=== PATIENT | female | born 1960 | race Caucasian/White ===

== ENCOUNTER 2018-02-15 12:04 | Outpatient (CLI) | payer OTHER, SELFPAY ==
[2018-02-15 13:16] LABS: Hemoglobin 12.4 g/dL (12.0-16.0); Mean Corpuscular HGB CONC 33.5 g/dL (32.0-36.0); Mean Corpuscular Hemoglobin 30.1 pg (27.0-31.0); Mean Platelet Volume 6.7 fL (7.4-10.4); Platelet Count 309 thou/uL (130-400); RBC Distribution Width 12.2 % (11.5-14.5); Red Blood Cell (RBC) Count 4.12 mill/uL (4.20-5.40); White Blood Cell (WBC) Count 5.1 thou/uL (4.8-10.8)
[2018-02-15 13:44] LABS: Anion Gap 11 mmol/L (10-20); BUN (Urea Nitrogen) 10 mg/dL (9.8-20.1); Calc. Creatinine Clearance 0 mL/min (70-130); Calcium 8.8 mg/dL (7.8-10.44); Carbon Dioxide 25 mmol/L (22-29); Chloride 109 mmol/L (98-107); Estimated GFR-MDRD 71; Glucose 92 mg/dL (70-105); Potassium 3.7 mmol/L (3.5-5.1); Sodium 141 mmol/L (136-145)
== END 2018-02-15 12:05 | disposition home or self-care (01) ==
LOC: LABBT 12:04
PROVIDERS: ATTEND Urology
DX: Z01.812 Encounter for preprocedural laboratory examination (principal); N13.2 Hydronephrosis with renal and ureteral calculous obstruction
CPT/HCPCS: 80048; 85027

== ENCOUNTER 2018-02-19 09:50 | Day surgery (SDC) | payer OTHER ==
[2018-02-15 12:31] VITALS: BMI 24.6
[2018-02-19] MEDS ORDERED: cefTRIAXone\\ROCEPHIN 1 GM, Syringe 0.4 ML in Sterile Water 9.6 ML SLOW IVP SCH (10:30)
--- NOTE | 2018-02-19 11:21 | RAD ---
RADIOGRAPH ABDOMEN ONE VIEW: Date: 02-19-18 History: 57-year-old female with nephrolithiasis. Pre procedural planning study for shockwave lithotripsy. Comparison: None. FINDINGS: There is a right ureteral stent. 5 or 6 mm calculus in proximal right ureter at L3-4 level. 8-9 mm ca lculus at the right renal midpole. Two smaller calculi slightly superior to it. Calcification in righ t hemipelvis is probably a phlebolith. Normal bowel gas pattern. IMPRESSION: 1. Right ureteral stent. 2. Evidence for right nephrolithiasis, consisting of a tight cluster of a few calculi in the right ki dney. 3. Calculus in right proximal ureter or ureteropelvic junction. POS: RADHA
[2018-02-19] MEDS ORDERED: Famotidine/PF 20 mg/2ml Vial ONE (11:58)
[2018-02-19] MEDS ORDERED: Fentanyl 100 MCG/2 ML VIAL ONE (11:58)
[2018-02-19] MEDS ORDERED: Albuterol Sulfate HFA (OR ONLY) ONE (12:10)
[2018-02-19] MEDS ORDERED: Furosemide 20 MG/2 ML VIAL ONE (13:18)
--- NOTE | 2018-02-19 13:33 | OP ---
DATE OF PROCEDURE: 02/19/2018 PREOPERATIVE DIAGNOSIS: Right renal stones. POSTOPERATIVE DIAGNOSES: Right renal stones as well as renal stones popping into the proximal ureter . SURGEON: Lydia Mckinley M.D. ANESTHESIA: General with laryngeal mask airway. FINDINGS: 1.3 cm UPJ stone was in the kidney and a 5-6 mm stone was at the UPJ. On the morning KUB; however, intraoperative it was noted that both stones were in the kidney and there was not a uretera l stone noted. COMPLICATIONS: No complications. ESTIMATED BLOOD LOSS: No blood loss. DRAINS REMAINING: No drains remaining. She already had an indwelling double-J. SPECIMENS: No specimens. INDICATIONS: The patient is a 57-year-old female who was admitted urgently with an obstructing 1.3 c m stone and underwent urgent stent. At that time it had appeared that the stent placement had pushed the UPJ stone into the kidney, so she was set up for definitive shockwave therapy. The patient was brought into the room by Anesthesia, laid on the table in the supine position. After receiving general anesthetic, she was positioned so that the lithotripter could identify the stones in multiple planes. Originally the smaller stone was at the UPJ by the KUB, but intraoperative fluor oscopy revealed that both stones were in the kidney. So, attention was turned to the smaller stone w here a total of 600 shocks were delivered originally with a relatively good fragmentation. Then, att ention was turned to the large stone with a maximum power of 4/6 and a max rate of 70 per minute. A total between the 2 stones at 2500 shocks were delivered. Good fragmentation was noted. The patient tolerated the procedure well and then was awakened and transferred to PACU in stable condition.
[2018-02-19] MEDS ORDERED: HYDROcodone/Acetaminophen 5/325 mg Tablet ONE (14:40)
[2018-02-19] MEDS ORDERED: ePHEDrine/0.9% NaCl/PF SYRINGE 50 mg/10 ml ONE (16:24)
[2018-02-19] MEDS ORDERED: Lidocaine 1% PF 5 ML VIAL ONE (16:24)
[2018-02-19] MEDS ORDERED: PHENYLEPHRINE-NS 100 MCG/ML 10 ML SYRINGE ONE (16:24)
[2018-02-19] MEDS ORDERED: Dexamethasone 20 MG/5 ML VIAL ONE (16:24)
[2018-02-19] MEDS ORDERED: PROPOFOL 200 MG/20 ML VIAL ONE (16:24)
== END 2018-02-19 15:28 | disposition home or self-care (01) ==
LOC: SDC 09:50
PROVIDERS: ATTEND Urology
PROC: 0TF3XZZ Fragmentation in Right Kidney Pelvis, External Approach (ICD-10-PCS; principal; 2018-02-19)
DX: N20.0 Calculus of kidney (principal); K50.90 Crohn's disease, unspecified, without complications; F17.210 Nicotine dependence, cigarettes, uncomplicated; Z87.442 Personal history of urinary calculi; Z79.899 Other long term (current) drug therapy; Z88.5 Allergy status to narcotic agent; Z88.8 Allergy status to other drugs, medicaments and biological substances; Z91.048 Other nonmedicinal substance allergy status
CPT/HCPCS: 74018; A4216; J0131; J0696; J1100; J1940; J2001; J2704; J3010; S0028

== ENCOUNTER 2018-03-28 09:13 | Outpatient (CLI) | payer OTHER ==
--- NOTE | 2018-03-28 11:36 | RAD ---
KUB: HISTORY: Renal calculus. COMPARISON: 02/19/18 study. FINDINGS: The bowel gas pattern is nonobstructed. Stool obscures both renal outlines, particularly on the righ t. A proximal right ureteral calculus seen on the previous examination is not definitely visualized on this study. The stent has been removed. Calcifications in the pelvis appear to represent phlebol iths. IMPRESSION: No definitive renal or ureteral calculi. The right renal outline is obscured by stool. POS: RADHA
== END 2018-03-28 09:14 | disposition home or self-care (01) ==
LOC: RAD 09:13
PROVIDERS: ATTEND Urology
DX: N20.1 Calculus of ureter (principal)
CPT/HCPCS: 74018

== ENCOUNTER 2025-10-08 10:58 | Emergency (ER) | payer BC, MEDICARE, OTHER ==
[2025-10-08] MEDS ORDERED: Ondansetron PF 4 MG/2 ML Vial ONE (13:42)
[2025-10-08 13:43] LABS: #Basophils 0.05 10x3/uL (0.0-0.2); #Eosinophils Less than 0.03 10x3/uL (0.0-0.7); #Monocytes 0.72 10x3/uL (0.11-0.59); #Neutrophils 11.67 10x3/uL (1.40-6.50); %Basophils 0.4 % (0.0-1.0); %Eosinophils 0.1 % (0.0-10.0); %Lymphocytes 11.3 % (21.0-51.0); %Monocytes 5.1 % (0.0-10.0); %Neutrophils 82.8 % (42.0-75.0); Hematocrit 48.3 % (36.0-47.0); Hemoglobin 15.5 g/dL (12.0-16.0); Mean Corpuscular Hemoglobin 28.2 pg (27.0-31.0); Mean Corpuscular Volume 87.8 fL (78.0-98.0); Platelet Count 304 10x3/uL (130-400); Red Blood Cell (RBC) Count 5.50 mill/uL (4.20-5.40); White Blood Cell (WBC) Count 14.10 10x3/uL (4.8-10.8)
[2025-10-08 14:34] LABS: ALT (SGPT) 25 U/L (Less than 34); AST (SGOT) 30 U/L (11-34); Albumin 4.4 g/dL (3.1-4.5); Alkaline Phosphatase 113 U/L (40-110); Anion Gap 11 mmol/L (10-20); BUN (Urea Nitrogen) 21 mg/dL (9.8-20.1); Bilirubin, Total 1.9 mg/dL (0.3-1.2); Calc. Creatinine Clearance 0 mL/min (70-130); Calcium 9.9 mg/dL (7.8-10.44); Carbon Dioxide 23 mmol/L (23-31); Chloride 108 mmol/L (98-107); Globulin 4.3 g/dL (2.4-3.5); Glucose 113 mg/dL (80-115); Lipase 48 U/L (8-78); Potassium 4.3 mmol/L (3.5-5.1); Sodium 138 mmol/L (136-145)
[2025-10-08 14:50] LABS: Bacteria/HPF None Seen HPF (None Seen); CAUTI Indications for Culture Dysuria,urgency,freq; Glucose, Urine (Dipstick) Normal (Negative); Leukocyte Negative Leu/uL (Negative); Protein, Urine (Dipstick) 30 mg/dL (Neg-Trace); RBC/HPF 0-3 HPF (0-3); Specific Gravity, Urine 1.027 (1.002-1.036); WBC/HPF 0-3 HPF (0-3)
[2025-10-08 15:03] LABS: Urine Culture Reflex No No
== END 2025-10-08 16:45 | disposition home or self-care (01) ==
LOC: ERS 10:58
DX: K50.90 Crohn's disease, unspecified, without complications (principal); I10 Essential (primary) hypertension; F17.210 Nicotine dependence, cigarettes, uncomplicated
CPT/HCPCS: 74177; 80053; 81001; 83690; 85025; 93005; J2405; J2919; J3010; 96361; 96374; 96375